=== PATIENT | female | born 1985 | race Caucasian/White ===

== ENCOUNTER → 2017-02-23 | Outpatient (CLI) | payer OTHER ==
--- NOTE | 2017-02-23 16:56 | US ---
EXAMINATION TYPE: US venous doppler duplex LE LT DATE OF EXAM: 02/23/2017 4:23 PM COMPARISON: NONE CLINICAL HISTORY: 31-year-old female M79.662 PAIN LT LOWER LIMB,R22.42 SWELLING LT LOWER LIMB. SIDE PERFORMED: Left TECHNIQUE: The lower extremity deep venous system is examined utilizing real time linear array sonog esperanza with graded compression, doppler sonography and color-flow sonography. FINDINGS: VESSELS IMAGED: External Iliac Vein (EIV) Common Femoral Vein Deep Femoral Vein Greater Saphenous Vein * Femoral Vein Popliteal Vein Small Saphenous Vein * Proximal Calf Veins (* superficial vessels) Left Leg: Negative for DVT IMPRESSION: No evidence for DVT within the left lower extremity imaged from the groin to the upper calf.
== END | disposition home or self-care (01) ==
LOC: RADUSWWP 16:01
PROVIDERS: ATTEND Internal Medicine
DX: R22.42 Localized swelling, mass and lump, left lower limb (principal); Z88.1 Allergy status to other antibiotic agents; Z88.6 Allergy status to analgesic agent

== ENCOUNTER 2021-09-06 01:30 | Emergency (ER) | payer OTHER ==
[2021-09-06 01:46] VITALS: BP 110/72; PULSE 72; RESP 16; TEMP 97.8
--- NOTE | 2021-09-06 02:28 | ED ---
Recheck HPI - General Chief Complaint: Recheck/Abnormal Lab/Rx Stated Complaint: Poss Seizure Time Seen by Provider: 09/06/21 01:32 Source: patient, EMS Mode of arrival: EMS Limitations: no limitations - History of Present Illness Initial Comments: 35 year-old female patient presents for possible seizure aura. States that she was at work. Around 11:30 she started to feel as though she might have a seizure. States she felt shaky, lightheaded, and had light sensitivity. This is usually how she feels prior to a seizure. States that she did take her Keppra at 12:00am. She states she is now feeling better. All symptoms have resolved. She is no longer concerned she will have a seizure. She denies any recent illness, fever, or chills. Denies any recent head injury. States she has had increased stress and lack of sleep. Last seizure was 7 months ago. She does take her medications as directed. Patient denies any recent rash, cough, shortness of b reath, chest pain, abdominal pain, nausea, vomiting, diarrhea, constipation, back pain, numbness, tingling, dizziness, weakness, hematuria, dysuria, urinary urgency, urinary frequency, headache, visual changes, or any other complaints. - Related Data Home Medications Medication Instructions Recorded Confirmed Ibuprofen [Motrin] 800 mg PO TID PRN 01/20/16 02/27/16 Albuterol Inhaler (Mhu) [Ventolin 2 puff INHALATION RT-Q6H PRN 02/11/16 02/27/16 Hfa Inhaler] Amoxicillin 500 mg PO Q12HR 02/27/16 02/27/16 Allergies Allergy/AdvReac Type Severity Reaction Status Date / Time cephalexin monohydrate AdvReac Vomiting Verified 02/27/16 20:40 [From Keflex] codeine phosphate AdvReac Nausea & Verified 02/27/16 20:40 [From Tylenol-Codeine #3] Vomiting Review of Systems ROS Statement: Those systems with pertinent positive or pertinent negative responses have been documented in the HPI. ROS Other: All systems not noted in ROS Statement are negative. Past Medical History Past Medical History: No Reported History Additional Past Medical History / Comment(s): Epilepsy History of Any Multi-Drug Resistant Organisms: None Reported Past Surgical History: Tubal Ligation Additional Past Surgical History / Comment(s): tubal Past Anesthesia/Blood Transfusion Reactions: No Reported Reaction Past Psychological History: Bipolar Smoking Status: Never smoker Past Alcohol Use History: Occasional Past Drug Use History: None Reported General Exam Limitations: no limitations General appearance: alert, in no apparent distress, other (This is a well- developed, well-nourished adult female in no acute distress.) Eye exam: Present: normal appearance, PERRL, EOMI. Absent: scleral icterus, conjunctival injection, nystagmus, periorbital swelling ENT exam: Present: normal exam, normal oropharynx, mucous membranes moist Respiratory exam: Present: normal lung sounds bilaterally. Absent: respiratory distress, wheezes, rales, rhonchi, stridor Cardiovascular Exam: Present: regular rate, normal rhythm, normal heart sounds. Absent: systolic murmur, diastolic murmur, rubs, gallop, clicks GI/Abdominal exam: Present: soft, normal bowel sounds. Absent: distended, tenderness, guarding, rebound, rigid Neurological exam: Present: alert, oriented X3, CN II-XII intact Expanded Speech: Present: fluid speech Cranial nerves: EOM's Intact: Normal, Tongue Deviation: Normal, Nystagmus: Normal Motor strength exam: RUE: 5, LUE: 5, RLE: 5, LLE: 5 Eye Response: (4) open spontaneously Motor Response: (6) obeys commands Verbal Response: (5) oriented [place] Total: 15 Psychiatric exam: Present: normal affect, normal mood Skin exam: Present: warm, dry, intact, normal color. Absent: rash Course Vital Signs 09/06/21 01:36 Temperature 97.8 F Pulse Rate 72 Respiratory 16 Rate Blood Pressure 110/72 O2 Sat by Pulse 100 Oximetry Medical Decision Making - Medical Decision Making 35-year-old female patient presents to the emergency department today for evaluation of possible oncoming seizure. States she had her typical aura symptoms while at work. States she did take her medication after the symptoms started. She is not feeling better. Denies any current symptoms. Declines any further testing. Physical examination was unremarkable. She is neurologically intact. She will be discharged follow up with her primary care physician and neurologist for further evaluation as soon as possible. Girlfriend is driving her home. Return parameters discussed in detail, she is discharged in stable condition. My attending is Dr. Qureshi. Disposition Clinical Impression: Lightheaded, Photophobia Disposition: HOME SELF-CARE Condition: Good Instructions (If sedation given, give patient instructions): Epilepsy (ED) Additional Instructions: Follow-up with the primary care physician for recheck in 1-2 days. Return to the emergency department for any new, worsening, or concerning symptoms. Is patient prescribed a controlled substance at d/c from ED?: No Referrals: Jorge Woodard MD [Primary Care Provider] - 1-2 days Time of Disposition: 02:28
== END 2021-09-06 02:51 | disposition home or self-care (01) ==
LOC: EC 01:30
DX: R42 Dizziness and giddiness (principal); H53.149 Visual discomfort, unspecified; Z88.1 Allergy status to other antibiotic agents; Z88.5 Allergy status to narcotic agent